=== PATIENT | female | born 1995 | race Caucasian/White ===

== ENCOUNTER 2016-09-05 15:37 | Emergency (ER) | payer OTHER ==
[2016-09-05 16:18] VITALS: BP 121/76
--- NOTE | 2016-09-05 16:59 | UC ---
Throat Pain/Nasal Jose Angel HPI - HPI Summary HPI Summary: Sore throat, sinus congestion, headache for 4 days,, no fevers - History of Current Complaint Chief Complaint: UCRespiratory Stated Complaint: ST,COUGH,SINUS Time Seen by Provider: 09/05/16 16:29 Hx Obtained From: Patient Hx Last Menstrual Period: 09/05/16 ?: No Onset/Duration: Sudden Onset, Lasting Days - 4, Still Present Severity: Moderate Pain Intensity: 5 Pain Scale Used: 0-10 Numeric Cough: Nonproductive Associated Signs & Symptoms: Positive: Sinus Discomfort, Nasal Discharge - Allergies/Home Medications Allergies/Adverse Reactions: Allergies Allergy/AdvReac Type Severity Reaction Status Date / Time Cefaclor [From [facility]] Allergy Hives Verified 09/05/16 16:10 Home Medications: Home Medications Control 1 tab QPM 09/05/16 [History] Insulin Aspart [Novolog Flexpen] 15 unit SUBCUT BID WITH MEALS 09/05/16 [ History Confirmed 09/05/16] Insulin GLARGINE(*) [Lantus(*)] 30 units QAM 09/05/16 [History Confirmed ] PMH/Surg Hx/FS Hx/Imm Hx Previously Healthy: No Endocrine History Of: Reports: Diabetes - Surgical History Surgical History: Yes Surgery Procedure, Year, and Place: Bra[place] teeth - Family History Known Family History: Positive: None Family History: no reported health issues in family lineage - Social History Occupation: Student Lives: With Family Alcohol Use: Weekly Substance Use Type: None Smoking Status (MU): Never Smoked Tobacco - Immunization History Most Recent Influenza Vaccination: NONE Most Recent Tetanus Shot: UTD Most Recent Pneumonia Vaccination: N/A Review of Systems Constitutional: Negative Skin: Negative Eyes: Negative ENT: Sore Throat, Ear Ache, Nasal Discharge Respiratory: Negative Cardiovascular: Negative Gastrointestinal: Negative Genitourinary: Negative Motor: Negative Neurovascular: Negative Musculoskeletal: Negative Neurological: Negative Psychological: Negative All Other Systems Reviewed And Are Negative: Yes Physical Exam Triage Information Reviewed: Yes Appearance: Well-Appearing, No Pain Distress, Well-Nourished Vital Signs: Initial Vital Signs Temp 97.3 F 09/05/16 16:13 Pulse 65 09/05/16 16:13 Resp 18 09/05/16 16:13 BP 121/76 09/05/16 16:13 Pulse Ox 100 09/05/16 16:13 Vital Signs Reviewed: Yes Eye Exam: Normal Eyes: Positive: Conjunctiva Clear ENT Exam: Normal ENT: Positive: Normal ENT inspection, Hearing grossly normal, Pharynx normal, Nasal congestion, TMs normal. Negative: Nasal drainage, Tonsillar swelling, Tonsillar exudate, Trismus, Muffled/hoarse voice Dental Exam: Normal Neck exam: Normal Neck: Positive: Supple, Nontender, No Lymphadenopathy Respiratory Exam: Normal Respiratory: Positive: Chest non-tender, Lungs clear, Normal breath sounds, No respiratory distress, No accessory muscle use Cardiovascular Exam: Normal Cardiovascular: Positive: RRR, No Murmur, Pulses Normal, Brisk Capillary Refill Abdominal Exam: Normal Abdomen Description: Positive: Nontender, No Organomegaly, Soft Bowel Sounds: Positive: Present Musculoskeletal Exam: Normal Musculoskeletal: Positive: Strength Intact, ROM Intact, No Edema Neurological Exam: Normal Neurological: Positive: Alert, Muscle Tone Normal Psychological Exam: Normal Skin Exam: Normal Throat Pain/Nasal Course/Dx - Course Assessment/Plan: zyrtec D, Flonase, increase fluids follow with pcp, [facility] or return as needed - Differential Dx/Diagnosis Differential Diagnosis/HQI/PQRI: Influenza, Laryngitis, Otitis Media, Pharyngitis, Sinusitis, URI Provider Diagnoses: Allergic Rhinitis Discharge - Discharge Plan Condition: Stable Disposition: HOME Prescriptions: Cetirizine-Pseudoephedrine [Zyrtec-D Allergy/Congesti] 1 tab PO BID PRN #30 tab PRN Reason: nasal drainage/sinus congestio Fluticasone NASAL SPRAY 50MCG* [Flonase NASAL SPRAY 50MCG*] 2 spray BOTH NARES DAILY #1 btl Patient Education Materials: Allergic Rhinitis (ED), How to Use Nasal [place] (ED ) Referrals: No Primary Care Phys,NOPCP [Primary Care Provider] - Additional Instructions: Follow with [facility] office or return as needed for worsening symptoms or if symptoms fail to resolved in 3-4 days
== END 2016-09-05 17:09 | disposition home or self-care (01) ==
LOC: UCCORT 15:37
DX: J30.9 Allergic rhinitis, unspecified (principal); Z88.1 Allergy status to other antibiotic agents; E11.9 Type 2 diabetes mellitus without complications; Z79.4 Long term (current) use of insulin
CPT/HCPCS: 87651; 99202; G0463